=== PATIENT | male | born 1965 | race Caucasian/White ===

== ENCOUNTER 2023-07-23 23:14 | Emergency (ER) | payer BC, SELFPAY ==
[2023-07-23 23:25] VITALS: BP 145/86; PULSE 49; RESP 14; TEMP 36.4; O2SAT 97; BMI 25.8
[2023-07-24] MEDS: TET,DIPH,PERTUSS(ACELL),VAC/PF 0.5 ML SYRINGE IM (00:50)
--- NOTE | 2023-07-24 01:14 | ED.WOUNDLAC ---
HPI - Wound/Laceration General Chief Complaint: Wound/Laceration Stated Complaint: Gashed chin open due to tripping Time Seen by Provider: 07/24/23 00:34 Source: patient Mode of arrival: Ambulatory Limitations: no limitations History of Present Illness HPI narrative: 58-year-old male with history of hypertension on atenolol, no anticoagulants. Patient tripped and fell hitting his chin on the ground. Patient did have alcohol this evening. He is alert appropriate, no loss of consciousness his family was with him when this occurred. Patient denies any neck pain chest pain, no shortness of breath, no other injuries besides abrasion on his right knee. He is ambulating into the department. No decreased mentation. No nausea or vomiting. Tetanus is not up-to-date. Patient had a parathyroid surgery remotely. Patient denies any tobacco, does drink alcohol daily, no illicit. 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 Related Data Allergies Allergy/AdvReac Type Severity Reaction Status Date / Time No Known Drug Allergies Allergy Verified 07/23/23 23:25 Review of Systems Review of Systems ROS Unobtainable: All systems reviewed & are unremarkable except as noted in HPI and below Patient History Social History Smoking Status: Never smoker Smoking Status: Never smoker alcohol intake frequency: 3 or more drinks per day Substance Use Type: does not use Exam Narrative Exam Narrative: GEN: Patient appears in mild distress. HEAD: No evidence of trauma other than on the underside of the chin, no raccoon/Razo sign. NECK: Nontender, painless range of motion, trachea midline There is no midline line tenderness, distracting injury, altered mental status, neuro deficit. EYES: PERRLA, EOMI ENT: External inspection normal except for laceration in the soft tissue underneath the chin, it is into the subcu it is about 2-1/2 cm, it is not through and through no bony exposure, trachea is midline, TM's are normal no hemotypanum, Nares are clear, no septal hematoma, no dental or oral injury, airway is normal and with normal occlusion, No bony tenderness RESP: Chest is nontender and has symmetric movement, no ecchymosis, breath sounds are normal no crackles, wheezes or rales CVS: Heart sounds are normal, no murmur noted, No JVD. ABG/GI: Nontender, soft, normal bowel sounds, no distention, no organomegaly, pelvic rock is negative NEURO: Oriented AOx3, neuro is grossly intact, sensation and motor is normal all 4 extremities moving, cranial nerves II through XII are intact, GCS is 15 PSYCH: Normal mood and affect SKIN: Intact, warm and dry, no crepitus and without decubitus BACK: No CVA tenderness, no vertebral tenderness, no step-off's, no crepitus EXT: Atraumatic, hips are nontender, no pedal edema, normal color and temperature, normal range of motion of extremities with normal tendon exam, 2+ pulses in all four extremities Initial Vital Signs Initial Vital Signs: Vital Signs Temperature 97.5 F L 07/23/23 23:25 Pulse Rate 49 L 07/23/23 23:25 Respiratory Rate 14 07/23/23 23:25 Blood Pressure 145/86 H 07/23/23 23:25 Pulse Oximetry 97 07/23/23 23:25 Oxygen Delivery Method Room Air 07/23/23 23:25 Procedures Laceration Repair Laceration 1: Site: face (chin) Size (cm): 2 Description: flap and irregular Depth: simple, single layer Local Anesthetic: lidocaine 2% Amount of anesthesia used (mL): 4 Pre-repair: wound explored, irrigated extensively and deep structures intact Skin layer closed with: vicryl Skin layer suture size: 5-0 Number of sutures: 4 Technique: simple, interrupted Course Orders Ordered: Discontinued Medications Diphtheria/Tetanus/Acell Pertussis (Tet,Diph,Pertuss(Acell),Vac/Pf 0.5 Ml Syringe) 0.5 ml IM .ONCE ONE Stop: 07/23/23 23:29 Last Admin: 07/24/23 00:50 Dose: 0.5 ml Documented By: TINY Lidocaine HCl (Lidocaine 2% Inj Sdv 5ml) 5 ml INJ INTRA-OP ONE Stop: 07/24/23 00:35 Last Admin: 07/24/23 01:40 Dose: 5 ml Documented By: TINY Vital Signs Vital signs: Vital Signs - 8 hr 07/23/23 23:25 07/24/23 02:12 Temperature 97.5 F L Pulse Rate 49 L 67 Respiratory Rate 14 16 Blood Pressure 145/86 H 131/80 Pulse Oximetry 97 95 Oxygen Delivery Method Room Air Room Air MDM - Wound/Laceration MDM Narrative Medical decision making narrative: This is a 58-year-old male who had a trip and fell catching his chin. Patient did have alcohol this evening. Denies any other injuries, no loss of consciousness was witnessed by his family was present. He has been up and walking since then. He does not take any anticoagulants, does not have any pain has normal movement. Tetanus was updated here in the department. He does take atenolol daily for hypertension. No known drug allergies. No tobacco, does drink alcohol most days, no illicit or recreational drugs. Patient is not anticoagulated, laceration was repaired. Patient's exam overall reassuring felt not to require CT imaging of the head. He is with family who will be with him overnight and we discussed return precautions. Discharge Plan Departure Patient Disposition: Home Clinical Impression: Chin laceration Instructions: DI for Laceration Repair Activity Restrictions/Additional Instructions: [place] for recheck as needed. Your sutures are absorbable you do not have to return to have them removed unless they are still present at 10 days. Wound Care: Keep wound(s) clean and dry. Wash daily with soap and water only. Do not use over the counter products (alcohol or peroxide)on the wounds unless instructed by a physician. If wound condition worsens (increased/expanding redness, developing fluid blisters, or worsening pain), either contact your doctor for an urgent re-assessment , or return to the Emergency Department. Return to the Emergency Department for any new or worsening symptoms. Return if fever greater than 100.4 Fahrenheit, increased swelling, increasing pain or worsening symptoms such as increased discharge or spreading redness. Altered mental status or confusion, new neck or back pain, chest pain or shortness of breath, persistent vomiting, new numbness tingling or weakness, dizziness or other new or concerning changes. Stand Alone Forms: Patient Portal/API
[2023-07-24] MEDS: LIDOCAINE 2% INJ SDV 5ML 5 ML INJ (01:40)
[2023-07-24 02:12] VITALS: BP 131/80; PULSE 67; RESP 16; O2SAT 95
== END 2023-07-24 02:15 | disposition home or self-care (01) ==
PROVIDERS: Emergency Provider Emergency Medicine
DX: S01.81XA Laceration without foreign body of other part of head, initial encounter (principal); W01.198A Fall on same level from slipping, tripping and stumbling with subsequent striking against other object, initial encounter; Z23 Encounter for immunization
CPT/HCPCS: 12011; 90471; 99283; 99284; 90715